=== PATIENT | female | born 1975 | race Caucasian/White ===

== ENCOUNTER 2017-12-09 07:07 | Inpatient (IN) ==
[2017-12-10 17:06] VITALS: BP 147/69
== END 2017-12-10 18:00 | disposition home or self-care (01) | DRG 272 ==
LOC: N.OR 07:07 → N.SDSINP 07:08 → N.3E 11:27
PROVIDERS: ADMIT Surgery; ATTEND Surgery

== ENCOUNTER 2020-10-16 16:14 | Observation (INO) ==
[2020-10-16 16:36] LABS: Basophils % 0.5 % (0.0-0.8); Eosinophils # 0.1 10*3/uL (0.0-0.87); Eosinophils % 1.5 % (0.00-10.9); Immature Granulocytes % 0.4 %; Immature Granulocytes Absolute 0.03 #; Lymphocytes # 2.8 10*3/uL (1.4-4.0); Lymphocytes % 34.8 % (21.3-54.2); Mean Corpuscular HGB Conc 33.3 GM/DL (32-36); Mean Corpuscular Volume 91.4 FL (87-102); Neutrophils % 53.8 % (38.7-73.9); Platelet Count 297 T/CUMM (130-400); Red Blood Count 3.94 MC/CUMM (3.8-5.5); Red Cell Distribution Width 12.3 % (9.3-17.3); White Blood Count 7.9 T/CUMM (4-12)
[2020-10-16 16:46] LABS: PT Patient Result 10.9 SECS (10.5-12.0); Partial Thromboplastin Time 22.8 SECS (23.9-33.8)
[2020-10-16 16:51] LABS: Bilirubin,Total 0.6 MG/DL (0.20-1.00); Calcium 9.4 MG/DL (8.5-10.1); Osmolality,Calculated 276.5 MOS/KG (273-304); Potassium 4.1 MMOL/L (3.5-5.1); Total Protein 7.3 G/DL (6.4-8.2)
[2020-10-16 17:00] LABS: Eosinophils 2 % (0-10); Lymphocytes 40 % (20-55); Microcytosis Slight; Segmented Neutrophils 51 % (50-85); Total Cells Counted 100
[2020-10-16 17:01] LABS: Atypical Lymphocytes 1+; Platelet Estimate Normal
[2020-10-16] MEDS ORDERED: MORPHINE 2 MG/1 ML SYRINGE IV STA (17:19)
[2020-10-16] MEDS ORDERED: ONDANSETRON ODT 4 MG TABLET PO STA (17:19)
[2020-10-16 17:38] LABS: Bilirubin,Urine Negative (Negative); Blood, Urine Negative (Negative); Glucose,Urine (UA) Negative (Negative); Ketones,Urine Negative (Negative); Mucus,Urine Occasional /LPF (Occasional); Nitrite,Urine Negative (Negative); Protein,Urine Negative; RBC,Urine <1 /HPF (0-4); Squamous Epithelial Cell,Urine Occasional /HPF (0-10); Urine Appearance CLEAR (Clear); Urine Color Yellow (Yellow); Urine Specific Gravity 1.008 (1.001-1.035); Urine Urobilinogen < 2.0 EU/DL (0.2-1.0)
[2020-10-16 17:44] LABS: Barbiturates Screen,Urine Negative (Negative); Benzodiazepines Screen,Urine Negative (Negative); Cannabinoid Screen,Urine Negative (Negative); Opiate Screen,Urine Positive (Negative); Phencyclidine Screen,Urine Negative (Negative)
[2020-10-16] MEDS ORDERED: ALUMINUM/MAGNES/SIMETH MAX STR 30 ML UDCUP PO PRN (17:45)
[2020-10-16] MEDS ORDERED: hydrALAZINE 20 MG/1 ML VIAL IV PRN (17:45)
[2020-10-16] MEDS ORDERED: diphenhydrAMINE CAP 25 MG CAPSULE PO PRN (17:45)
[2020-10-16] MEDS ORDERED: ZALEPLON 5 MG CAPSULE PO PRN (17:45)
[2020-10-16] MEDS ORDERED: guaiFENesin/DM ER 600-30 MG TABLET PO PRN (17:45)
[2020-10-16] MEDS ORDERED: MORPHINE 2 MG/1 ML SYRINGE IV PRN (17:45)
[2020-10-16] MEDS ORDERED: ONDANSETRON 4 MG/2 ML VIAL IV PRN (17:45)
[2020-10-16] MEDS ORDERED: DOCUSATE SODIUM 100 MG CAPSULE PO PRN (17:45)
[2020-10-16] MEDS ORDERED: ACETAMINOPHEN 325 MG TABLET PO PRN (17:45)
[2020-10-16] MEDS ORDERED: NITROGLYCERIN SL 0.4 MG TABLET SL PRN (18:24)
[2020-10-16] MEDS ORDERED: AMITRIPTYLINE 50 MG TABLET PO SCH (21:00)
[2020-10-16] MEDS ORDERED: CITALOPRAM 20 MG TABLET PO SCH (21:00)
[2020-10-16] MEDS ORDERED: ATORVASTATIN 40 MG TABLET PO SCH (21:00)
[2020-10-16] MEDS: METOPROLOL TARTRATE 25 MG TABLET PO SCH (21:17)
[2020-10-17 05:23] LABS: Basophils % 0.4 % (0.0-0.8); Eosinophils # 0.2 10*3/uL (0.0-0.87); Eosinophils % 2.3 % (0.00-10.9); Hematocrit 35.3 VOL% (35.7-47.0); Hemoglobin 11.8 GM/DL (12.0-16.0); Immature Granulocytes % 0.3 %; Immature Granulocytes Absolute 0.02 #; Lymphocytes # 3.2 10*3/uL (1.4-4.0); Lymphocytes % 44.6 % (21.3-54.2); Mean Corpuscular HGB Conc 33.4 GM/DL (32-36); Mean Corpuscular Volume 91.7 FL (87-102); Mean Platelet Volume 9.2 FL (9.6-12.0); Monocytes % 9.8 % (1.7-12.7); Neutrophils % 42.6 % (38.7-73.9); Platelet Count 299 T/CUMM (130-400); Red Blood Count 3.85 MC/CUMM (3.8-5.5); Red Cell Distribution Width 12.5 % (9.3-17.3); White Blood Count 7.3 T/CUMM (4-12)
[2020-10-17 05:46] LABS: Atypical Lymphocytes Few; Eosinophils 2 % (0-10); Hypochromasia Slight; Lymphocytes 49 % (20-55); Segmented Neutrophils 41 % (50-85); Total Cells Counted 100
[2020-10-17 05:47] LABS: Microcytosis Slight; Platelet Estimate Normal
[2020-10-17 06:08] LABS: Calcium 9.1 MG/DL (8.5-10.1); Osmolality,Calculated 275.5 MOS/KG (273-304); Risk Ratio 4.02; Thyroid Stimulating Hormone 4.43 uIU/ml (0.358-3.74)
[2020-10-17 08:41] VITALS: BP 110/47
[2020-10-17] MEDS ORDERED: ASPIRIN CHEW 81 MG TABLET PO SCH (09:00)
[2020-10-17] MEDS ORDERED: PANTOPRAZOLE 40 MG TABLET PO SCH (09:00)
[2020-10-17] MEDS ORDERED: CLOPIDOGREL 75 MG TABLET PO SCH (09:00)
[2020-10-17] MEDS ORDERED: lisinopriL 10 MG TABLET PO SCH (09:00)
[2020-10-17] MEDS: METOPROLOL TARTRATE 25 MG TABLET PO SCH (10:29)
== END 2020-10-17 16:15 | disposition home or self-care (01) ==
LOC: SUATTDRO → N.EDINP 16:14 → N.ED 16:14 → N.TELEN 20:59
PROVIDERS: ADMIT Phlebology; ATTEND Internal Medicine Geriatric Medicine